=== PATIENT | female | born 1995 | race African-American/Black ===

== ENCOUNTER 2017-04-22 16:08 | Emergency (ER) | payer MEDICAID ==
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
--- NOTE | 2017-04-23 08:52 | CR ---
EXAM DATE: 04/22/17 PATIENT'S AGE: 22 Patient: DAREN HAMMER Facility: [place], [place] Site . Site : 1995 Study: XRay Extremity Right Ribs [id number]/30/2018 4:41:56 PM Ordering Physician: Doctor Bravo Final Report: INDICATION: Injury and pain TECHNIQUE: Chest and right ribs 3 views. COMPARISON: None FINDINGS: Cardiovascular and mediastinum: Heart size and vasculature are normal in caliber and appearance. Mediastinum is within normal limits. Lungs and pleural spaces: Lungs are clear. No sign of infiltrate or mass. No sign of pleural effusion. No pneumothorax. Bones and soft tissues: Detailed oblique images of the right ribs demonstrate no fractures or bone lesions. IMPRESSION: Unremarkable chest and right ribs. Dictated by Talat Erwin MD @ 04/22/2017 4:45:12 PM Dictated by: Talat Erwin MD @ 04/22/2017 16:45:27 (Electronic Signature) Report Signed by Proxy. [email or web address]
== END 2017-04-22 17:05 | disposition home or self-care (01) ==
LOC: MW.ED 16:08
DX: S20.211A Contusion of right front wall of thorax, initial encounter (principal); Y04.2XXA Assault by strike against or bumped into by another person, initial encounter
CPT/HCPCS: 71101-26-RT; 71101-RT; 99282; 99284

== ENCOUNTER 2018-07-31 18:58 | Emergency (ER) | payer SELFPAY ==
[2018-07-31] MEDS ORDERED: Lidocaine 2% Viscous Solution 15 ML Cup PO ONE (19:13)
[2018-07-31] MEDS ORDERED: Benzocaine 20% Topical Spray UD MUCMEM ONE (19:13)
--- NOTE | 2018-07-31 19:15 | EDM.PDOC ---
ED HPI GENERAL MEDICAL PROBLEM - General Chief Complaint: ENT Problem Stated Complaint: TOOTH PAIN Time Seen by Provider: 07/31/18 19:09 - History of Present Illness INITIAL COMMENTS - FREE TEXT/NARRATIVE: HISTORY AND PHYSICAL: History of present illness: The patient is a 23-year-old who presents with complaints of recurrent pain to the right lower jaw which has impacted wisdom tooth and this has flared up in the past and is flaring up again. She has some facial swelling and she says that she has had an abscess there before but she did not see the dentist but she did not have insurance. She says that the pain and swelling started again yesterday. She has no systemic complaints of fever chills nausea vomiting or sore throat. Review of systems: As per history of present illness and below otherwise all systems reviewed and negative. Past medical history: As per history of present illness and as reviewed below otherwise noncontributory. Surgical history: As per history of present illness and as reviewed below otherwise noncontributory. Social history: No reported history of drug or alcohol abuse. Family history: As per history of present illness and as reviewed below otherwise noncontributory. Physical exam: HEENT: Atraumatic, normocephalic, pupils reactive, negative for conjunctival pallor or scleral icterus, mucous membranes moist, throat clear, neck supple, nontender, trachea midline. There is minimal swelling of the right jaw area there is no cervical adenopathy or nuchal rigidity. At tooth #32 there is a small amount of shunting and there is soft tissue swelling and gum swelling without fluctuance Lungs: Clear to auscultation, breath sounds equal bilaterally, chest nontender. Heart: S1S2, regular rate and rhythm no overt murmurs Abdomen: Soft, nondistended, nontender. NABS Pelvis: deferred Genitourinary: Deferred. Rectal: Deferred. Extremities: Atraumatic, full range of motion without defects or deficits Neurovascular unremarkable. Neuro: Awake, alert, oriented. Cranial nerves II through XII unremarkable. Cerebellum unremarkable. Motor and sensory unremarkable throughout. Exam nonfocal. Diagnostics: none Therapeutics: Dental balls Impression: Dental pain Definitive disposition and diagnosis as appropriate pending reevaluation and review of above. Oral/Mouth Pain Score (Numeric/FACES): 8 - Related Data Allergies Allergy/AdvReac Type Severity Reaction Status Date / Time No Known Allergies Allergy Verified 07/31/18 19:05 Home Meds: Home Meds . [No Known Home Meds] 04/22/17 [History] Past Medical History - Past Health History Medical/Surgical History: Denies Medical/Surgical History Social & Family History - Family History Family Medical History: Noncontributory - Tobacco Use Smoking Status *Q: Never Smoker - Caffeine Use Caffeine Use: Reports: None - Recreational Drug Use Recreational Drug Use: No ED ROS GENERAL - Review of Systems Review Of Systems: ROS reveals no pertinent complaints other than HPI. ED EXAM, GENERAL - Physical Exam Exam: See Below (See dictation) Course - Vital Signs Last Recorded V/S: Last Vital Signs Temp 36.2 C 07/31/18 19:05 Pulse 82 07/31/18 19:05 Resp 16 07/31/18 19:05 BP 108/72 07/31/18 19:05 Pulse Ox 97 07/31/18 19:05 - Orders/Labs/Meds Meds: Medications Discontinued Medications Generic Name Dose Route Start Last Admin Trade Name Marina PRN Reason Stop Dose Admin Benzocaine 2 each 07/31/18 19:13 Hurricaine One 20% MUCMEM 07/31/18 19:14 ONETIME ONE Lidocaine HCl 15 ml 07/31/18 19:13 Xylocaine 2% Viscous PO 07/31/18 19:14 ONETIME ONE Departure - Departure Time of Disposition: 19:18 Disposition: Home, Self-Care 01 Condition: Good Clinical Impression: Pain, dental - Discharge Information Referrals: PCP,None [Primary Care Provider] - Forms: ED Department Discharge Additional Instructions: The following information is given to patients seen in the emergency department who are being discharged to home. This information is to outline your options for follow-up care. We provide all patients seen in our emergency department with a follow-up referral. The need for follow-up, as well as the timing and circumstances, are variable depending upon the specifics of your emergency department visit. If you don't have a primary care physician on staff, we will provide you with a referral. We always advise you to contact your personal physician following an emergency department visit to inform them of the circumstance of the visit and for follow-up with them and/or the need for any referrals to a consulting specialist. The emergency department will also refer you to a specialist when appropriate. This referral assures that you have the opportunity for followup care with a specialist. All of these measure are taken in an effort to provide you with optimal care, which includes your followup. Under all circumstances we always encourage you to contact your private physician who remains a resource for coordinating your care. When calling for followup care, please make the office aware that this follow-up is from your recent emergency room visit. If for any reason you are refused follow-up, please contact the [facility] emergency department at and ask to speak to the emergency department charge nurse. [facility] Primary care- Internal Medicine and Family [place] [phone] Use ice to face for swelling and take [id number] Tylenol and ibuprofen for pain as well as use the dental balls you have been given and as shown. Take amoxicillin as prescribed to help with early infection. Please call and connect with one of our local dentist for definitive care and treatment and return to ER as needed and as discussed
== END 2018-07-31 19:39 | disposition home or self-care (01) ==
LOC: MW.ED 18:58
DX: K08.89 Other specified disorders of teeth and supporting structures (principal)
CPT/HCPCS: 99282; A9270